=== PATIENT | male | born 1985 | race Asian ===

== ENCOUNTER 2024-04-12 13:03 | Emergency (ER) | payer MEDICAID ==
[~2024-04-12] VITALS: Ht 177.8 cm; Wt 98.0 kg
[~2024-04-12 13:03] MED LIST: ACET-66 PO; LIDO700A15 TP
[2024-04-12 13:06] VITALS: TEMP 98.3
[2024-04-12 17:23] LABS: BASOPHILS % (AUTO) 0.2 % (0.0-2.0); EOSINOPHILS % (AUTO) 0.4 % (1.0-6.0); HEMATOCRIT 47.7 % (41-53); HEMOGLOBIN 15.8 g/dL (13.5-17.5); LYMPHOCYTES # (AUTO) 2.5 K/uL (1.0-4.8); LYMPHOCYTES % (AUTO) 12.6 % (22.0-44.0); MEAN CORPUSCULAR HEMOGLOBIN 27.9 pg (26.0-34.0); MEAN CORPUSCULAR HGB CONC 33.1 G/dL (31.0-37.0); MEAN CORPUSCULAR VOLUME 85 fL (80-100); MONOCYTES % (AUTO) 4.8 % (2.0-9.0); NEUTROPHILS # (AUTO) 16.2 K/uL (1.8-7.7); PLATELET COUNT (AUTO) 373 K/uL (150-450); RED BLOOD CELL COUNT(AUTO) 5.64 MIL/uL (4.50-5.90); RED CELL DISTRIBUTION WIDTH 14.6 % (11.5-14.5); WHITE BLOOD COUNT (AUTO) 19.8 K/uL (4.5-11.0)
[2024-04-12 17:36] LABS: ANION GAP 15 mmol/L (8-16); CALCIUM, TOTAL 9.8 mg/dL (8.8-10.5); CARBON DIOXIDE 22 mmol/L (22-29); CHLORIDE 101 mmol/L (98-107); CREATININE 1.22 mg/dL (0.60-1.30); GLOMERULAR FILTR. RATE CALC > 60 mL/min (>60); GLUCOSE,RANDOM 96 mg/dL (70-110); POTASSIUM 3.5 mmol/L (3.5-5.1); SODIUM SERUM 138 mmol/L (136-145); UREA NITROGEN, BLOOD 9 mg/dL (7-18)
[2024-04-12] MEDS: HYDROCODONE/ACETAMINOPHEN 5-325 MG TABLET PO ONE (19:41)
[2024-04-12] MEDS ORDERED: METH-659 PO (20:05)
[2024-04-12] MEDS ORDERED: HYDR-4072 PO (20:05)
[2024-04-12 20:58] VITALS: BP 142/77; PULSE 95; RESP 18; O2SAT 95
== END 2024-04-12 20:14 | disposition left against medical advice (07) ==
LOC: EMS 13:03
DX: D72.829 Elevated white blood cell count, unspecified (principal); G89.4 Chronic pain syndrome; M54.50 Low back pain, unspecified; M79.605 Pain in left leg; M79.604 Pain in right leg; I10 Essential (primary) hypertension; Z88.6 Allergy status to analgesic agent
CPT/HCPCS: 80048; 85025; 99283

== ENCOUNTER 2024-05-12 18:31 | Emergency (ER) | payer MEDICAID ==
[~2024-05-12] VITALS: Ht 177.8 cm; Wt 90.9 kg
[~2024-05-12 18:31] MED LIST changes: +HYDR-4072 PO; +METH-659 PO
[2024-05-12 18:34] VITALS: TEMP 98
[2024-05-12] MEDS ORDERED: LISI40TA9 PO (18:37)
[2024-05-12] MEDS ORDERED: AMLO10TA55 PO (18:37)
[2024-05-12] MEDS ORDERED: FentaNYL CITRATE PF 100 MCG/2 ML VIAL IVP ONE (19:00)
[2024-05-12] MEDS: FentaNYL CITRATE PF 100 MCG/2 ML VIAL IM ONE (19:32)
[2024-05-12] MEDS ORDERED: HYDR-4072 PO (21:37)
[2024-05-12 21:58] VITALS: BP 132/77; PULSE 86; RESP 18; O2SAT 99
== END 2024-05-12 22:18 | disposition home or self-care (01) ==
LOC: EMS 19:26
DX: S20.212A Contusion of left front wall of thorax, initial encounter (principal); S40.012A Contusion of left shoulder, initial encounter; M54.2 Cervicalgia; I10 Essential (primary) hypertension; Z88.6 Allergy status to analgesic agent; V03.99XA Pedestrian with other conveyance injured in collision with car, pick-up truck or van, unspecified whether traffic or nontraffic accident, initial encounter; Y93.89 Activity, other specified; Y92.89 Other specified places as the place of occurrence of the external cause; Y99.8 Other external cause status
CPT/HCPCS: 99285; 71250; 29105; 72125; 74176; 96372; J3010; 72192; 74150

== ENCOUNTER 2024-05-13 16:35 | Inpatient (IN) | payer MEDICAID ==
[~2024-05-13] VITALS: Ht 177.8 cm; Wt 86.4 kg
[~2024-05-13 16:35] MED LIST changes: +AMLO10TA55 PO; +LISI40TA9 PO
[2024-05-13] MEDS: HYDROCODONE/ACETAMINOPHEN 10-325 MG TABLET PO ONE (18:04)
[2024-05-13] MEDS: HYDROmorphone HCL 2 MG/ML SYRINGE IVP ONE ×2 (18:06→20:08)
[2024-05-13 19:19] LABS: BASOPHILS % (AUTO) 0.7 % (0.0-2.0); EOSINOPHILS % (AUTO) 3.6 % (1.0-6.0); HEMOGLOBIN 13.6 g/dL (13.5-17.5); LYMPHOCYTES % (AUTO) 29.6 % (22.0-44.0); MEAN CORPUSCULAR HEMOGLOBIN 28.2 pg (26.0-34.0); MEAN CORPUSCULAR HGB CONC 33.1 G/dL (31.0-37.0); MEAN CORPUSCULAR VOLUME 85 fL (80-100); MONOCYTES # (AUTO) 0.6 K/uL (0.1-1.0); MONOCYTES % (AUTO) 5.8 % (2.0-9.0); NEUTROPHILS # (AUTO) 6.1 K/uL (1.8-7.7); NEUTROPHILS % (AUTO) 60.3 % (40.0-70.0); PLATELET COUNT (AUTO) 323 K/uL (150-450); RED BLOOD CELL COUNT(AUTO) 4.81 MIL/uL (4.50-5.90); RED CELL DISTRIBUTION WIDTH 14.5 % (11.5-14.5); WHITE BLOOD COUNT (AUTO) 10.2 K/uL (4.5-11.0)
[2024-05-13 19:27] LABS: ANION GAP 13 mmol/L (8-16); CARBON DIOXIDE 25 mmol/L (22-29); CHLORIDE 103 mmol/L (98-107); CREATININE 1.03 mg/dL (0.60-1.30); GLOMERULAR FILTR. RATE CALC > 60 mL/min (>60); GLUCOSE,RANDOM 96 mg/dL (70-110); POTASSIUM 3.1 mmol/L (3.5-5.1); SODIUM SERUM 141 mmol/L (136-145); UREA NITROGEN, BLOOD 8 mg/dL (7-18)
[2024-05-13 19:50] LABS: TROPONIN I-HIGH SENSITIVITY 22 ng/L (<76)
[2024-05-13 19:51] LABS: ALANINE AMINOTRANSFERASE 19 U/L (12-78); ALBUMIN 3.9 g/dL (3.4-5.0); ALKALINE PHOSPHATASE 76 U/L (46-116); ASPARTATE AMINOTRANSFERASE 17 U/L (15-37); BILIRUBIN,TOTAL 0.5 mg/dL (0.1-1.0); CREATINE KINASE, TOTAL ONLY 144 U/L (39-308); TOTAL PROTEIN, SERUM 7.9 g/dL (6.4-8.2)
[2024-05-13] MEDS: POTASSIUM CHLORIDE 20 MEQ ER TABLET PO PRN (20:44)
[2024-05-13] MEDS: SODIUM CHLORIDE 0.9% 1,000 ML IV ONE (20:44)
[2024-05-13] MEDS: DOCUSATE SODIUM 100 MG CAPSULE PO SCH (20:44)
[2024-05-13] MEDS ORDERED: ZOLPIDEM TARTRATE 5 MG TABLET PO PRN (20:45)
[2024-05-13] MEDS ORDERED: MAGNESIUM HYDROXIDE SUSPENSION 30 ML UDCUP PO PRN (20:45)
[2024-05-13] MEDS ORDERED: BISACODYL 10 MG RECTAL RECTAL SUPPOSITORY PR PRN (20:45)
[2024-05-13] MEDS ORDERED: ACETAMINOPHEN 325 MG TABLET PO PRN (20:45)
[2024-05-13] MEDS ORDERED: POTASSIUM CHL 10 MEQ/WATER 50 ML IV PRN (20:45)
[2024-05-13 21:16] LABS: APPEARANCE,URINE CLEAR (CLEAR); BILIRUBIN,URINE NEGATIVE (NEGATIVE); COLOR,URINE YELLOW (YELLOW); GLUCOSE, URINE (UA) NEGATIVE (NEGATIVE); KETONES,URINE NEGATIVE (NEGATIVE); LEUKOCYTE ESTERASE ,URINE NEGATIVE (NEGATIVE); NITRATE,URINE NEGATIVE (NEGATIVE); OCCULT BLOOD,URINE TRACE (NEGATIVE); PROTEIN,URINE 30-70 mg/dL (NEGATIVE); SPECIFIC GRAVITIY, URINE 1.028 (1.003-1.030); UROBILINOGEN,URINE <=1.0 mg/dL (<=1.0)
[2024-05-13 21:30] LABS: BACTERIA,URINE None Seen /HPF (None Seen); RBC,URINE None Seen /HPF (0-2); SQUAMOUS EPITHELIAL CELL,UR Rare /LPF (None Seen); WBC,URINE None Seen /HPF (0-5)
[2024-05-13] MEDS: ONDANSETRON HCL 4 MG/2 ML VIAL IVP PRN (21:38)
[2024-05-13] MEDS: MORPHINE SULFATE 2 MG/ML SYRINGE IVP PRN (21:39)
[2024-05-13] MEDS: HYDROmorphone HCL 2 MG/ML SYRINGE IVP PRN (22:41)
[2024-05-14] MEDS: HYDROCODONE/ACETAMINOPHEN 5-325 MG TABLET PO PRN (02:56)
[2024-05-14 03:22] VITALS: BP 149/78; PULSE 69; RESP 18; TEMP 98.1; O2SAT 98
[2024-05-14 07:51] VITALS: BP 143/80; PULSE 68; RESP 18; TEMP 98.3; O2SAT 100
[2024-05-14] MEDS: FAMOTIDINE 20 MG TABLET PO SCH (08:05)
[2024-05-14 15:41] VITALS: BP 135/72; PULSE 63; RESP 18; TEMP 98.4; O2SAT 98
[2024-05-14 19:56] VITALS: BP 154/86; PULSE 64; RESP 18; TEMP 98.2; O2SAT 96
[2024-05-15 05:21] VITALS: BP 153/76; PULSE 62; RESP 18; TEMP 97.5; O2SAT 100
[2024-05-15 08:24] VITALS: BP 152/98; PULSE 65; RESP 18; TEMP 97.5; O2SAT 100
[2024-05-15] MEDS ORDERED: OXYC-43 PO (15:04)
[2024-05-15] MEDS ORDERED: OXYC-38 PO (15:46)
== END 2024-05-15 16:45 | disposition home or self-care (01) | DRG 384 ==
LOC: EMS 16:35 → EDH 22:22 → 4E 05-14 02:16
PROVIDERS: ADMIT Internal Medicine; ATTEND Internal Medicine
DX: S20.212A Contusion of left front wall of thorax, initial encounter (principal); G89.29 Other chronic pain; I10 Essential (primary) hypertension; M54.50 Low back pain, unspecified; V89.2XXA Person injured in unspecified motor-vehicle accident, traffic, initial encounter; Y92.410 Unspecified street and highway as the place of occurrence of the external cause; Y93.89 Activity, other specified; Y99.8 Other external cause status; Z87.442 Personal history of urinary calculi; Z88.6 Allergy status to analgesic agent
CPT/HCPCS: 80048; 80076; 81001; 82550; 84132; 84484; 85025; 99285; G0378; J1170; J2270; J2405; J7030

== ENCOUNTER 2024-05-16 17:45 | Emergency (ER) | payer MEDICAID ==
[~2024-05-16] VITALS: Ht 177.8 cm; Wt 86.4 kg
[~2024-05-16 17:45] MED LIST changes: -ACET-66 PO; +OXYC-38 PO
[2024-05-16 17:48] VITALS: TEMP 99
[2024-05-16] MEDS: HYDROmorphone HCL 2 MG/ML SYRINGE IM ONE (20:24)
[2024-05-16 20:37] VITALS: BP 152/92; PULSE 69; RESP 18; O2SAT 98
== END 2024-05-16 20:49 | disposition home or self-care (01) ==
LOC: EMS 17:45
DX: S20.219A Contusion of unspecified front wall of thorax, initial encounter (principal); I10 Essential (primary) hypertension; G89.29 Other chronic pain; Z88.6 Allergy status to analgesic agent; V49.88XA Car occupant (driver) (passenger) injured in other specified transport accidents, initial encounter; Y93.89 Activity, other specified; Y92.89 Other specified places as the place of occurrence of the external cause; Y99.8 Other external cause status
CPT/HCPCS: 99283; 96372; J1170

== ENCOUNTER 2024-06-03 11:27 | Emergency (ER) | payer MEDICAID ==
[~2024-06-03] VITALS: Ht 177.8 cm; Wt 88.6 kg
[2024-06-03 11:32] VITALS: TEMP 98.3
[2024-06-03] MEDS: MORPHINE SULFATE 4 MG/ML SYRINGE IVP ONE ×2 (12:04→12:56)
[2024-06-03] MEDS ORDERED: HYDR-4072 PO (13:03)
[2024-06-03 13:20] VITALS: BP 158/74; PULSE 80; RESP 18; O2SAT 99
[2024-06-04] MEDS ORDERED: PERCT PO (17:11)
[2024-06-04] MEDS ORDERED: METH-812 PO (17:11)
[2024-06-04] MEDS ORDERED: LIDO700A15 TP (17:11)
== END 2024-06-03 13:39 | disposition home or self-care (01) ==
LOC: EMS 11:27
DX: S20.219A Contusion of unspecified front wall of thorax, initial encounter (principal); S40.012A Contusion of left shoulder, initial encounter; M54.2 Cervicalgia; R10.9 Unspecified abdominal pain; I10 Essential (primary) hypertension; Z88.1 Allergy status to other antibiotic agents; Z88.5 Allergy status to narcotic agent; Z88.6 Allergy status to analgesic agent; Z87.442 Personal history of urinary calculi; Z79.899 Other long term (current) drug therapy; W10.9XXA Fall (on) (from) unspecified stairs and steps, initial encounter; Y93.89 Activity, other specified; Y92.89 Other specified places as the place of occurrence of the external cause; Y99.8 Other external cause status
CPT/HCPCS: 99285; 70450; 96374; 73030; 71250; 72125; 74150; 96376; 72192; J2270

== ENCOUNTER 2024-06-04 15:11 | Emergency (ER) | payer MEDICAID ==
[~2024-06-04] VITALS: Ht 177.8 cm; Wt 86.4 kg
[2024-06-04 15:18] VITALS: TEMP 98.5
[2024-06-04] MEDS: LIDOCAINE 5% TRANSDERMAL PATCH TD ONE (16:44)
[2024-06-04] MEDS: OxyCODONE HCL/ACETAMINOPHEN 5-325 MG TABLET PO ONE (16:44)
[2024-06-04] MEDS: METHOCARBAMOL 500 MG TABLET PO ONE (16:44)
[2024-06-04 17:00] VITALS: BP 154/74; PULSE 78; RESP 17; O2SAT 99
[2024-06-04] MEDS ORDERED: PERCT PO (17:11)
[2024-06-04] MEDS ORDERED: METH-812 PO (17:11)
[2024-06-04] MEDS ORDERED: LIDO700A15 TP (17:11)
== END 2024-06-04 17:40 | disposition home or self-care (01) ==
LOC: EMS 15:11
DX: S40.012A Contusion of left shoulder, initial encounter (principal); S20.219A Contusion of unspecified front wall of thorax, initial encounter; I10 Essential (primary) hypertension; Z88.1 Allergy status to other antibiotic agents; Z88.5 Allergy status to narcotic agent; Z88.6 Allergy status to analgesic agent; Z87.442 Personal history of urinary calculi; Z79.899 Other long term (current) drug therapy; W10.9XXA Fall (on) (from) unspecified stairs and steps, initial encounter; Y93.89 Activity, other specified; Y92.89 Other specified places as the place of occurrence of the external cause; Y99.8 Other external cause status
CPT/HCPCS: 29105; 29240; 99284; Z7502; Z7610

== ENCOUNTER 2024-06-10 17:35 | Emergency (ER) | payer MEDICAID ==
[~2024-06-10] VITALS: Ht 177.8 cm; Wt 86.4 kg
[~2024-06-10 17:35] MED LIST changes: -METH-659 PO; +METH-812 PO; -OXYC-38 PO; +PERCT PO
[2024-06-10 17:44] VITALS: BP 158/79; PULSE 86; RESP 18; TEMP 97.9; O2SAT 98
== END 2024-06-10 20:57 | disposition left against medical advice (07) ==
LOC: EMS 17:35
DX: M25.512 Pain in left shoulder (principal); Z53.21 Procedure and treatment not carried out due to patient leaving prior to being seen by health care provider

== ENCOUNTER → 2024-06-14 | Emergency (ER) | payer MEDICAID ==
[~2024-06-14] VITALS: Ht 177.8 cm; Wt 86.4 kg
[~2024-06-14] MED LIST changes: +GABA-1181 PO; +HYDR-4062 PO
[2024-06-14 17:02] VITALS: TEMP 98.5
[2024-06-14] MEDS: METHOCARBAMOL 500 MG TABLET PO ONE (18:21)
[2024-06-14] MEDS: KETOROLAC TROMETHAMINE 60 MG/2 ML VIAL IM ONE (18:22)
[2024-06-14 19:15] VITALS: BP 154/99; PULSE 81; RESP 17; O2SAT 99
== END | disposition home or self-care (01) ==
LOC: EMS 16:57
DX: S20.212A Contusion of left front wall of thorax, initial encounter (principal); S40.012A Contusion of left shoulder, initial encounter; I10 Essential (primary) hypertension; Z88.1 Allergy status to other antibiotic agents; Z88.5 Allergy status to narcotic agent; Z88.6 Allergy status to analgesic agent; Z87.442 Personal history of urinary calculi; Z79.899 Other long term (current) drug therapy; V89.2XXA Person injured in unspecified motor-vehicle accident, traffic, initial encounter; Y93.89 Activity, other specified; Y92.89 Other specified places as the place of occurrence of the external cause; Y99.8 Other external cause status
CPT/HCPCS: 71045; 72170; 99284; J1885